=== PATIENT | male | born 1965 | race Caucasian/White ===

== ENCOUNTER 2018-04-05 07:30 | Outpatient (RCR) | payer OTHER, SELFPAY | END 2018-04-05 11:00 | disposition home or self-care (01) | LOC: PT 07:30 | PROVIDERS: Visit Provider Orthopaedic Surgery Adult Reconstructive Orthopaedic Surgery | DX: M25.572 Pain in left ankle and joints of left foot (principal) | CPT/HCPCS: 97110; 97112; 97116; 97163; 97164 ==

== ENCOUNTER 2019-08-25 10:00 | Outpatient (RCR) | payer OTHER, SELFPAY | END 2019-08-25 16:07 | disposition home or self-care (01) | LOC: PT.CARL 10:00 | PROVIDERS: PCP Internal Medicine Adolescent Medicine; Visit Provider Orthopaedic Surgery | DX: R26.9 Unspecified abnormalities of gait and mobility (principal); M62.469 Contracture of muscle, unspecified lower leg | CPT/HCPCS: 97110; 97112; 97116; 97163 ==

== ENCOUNTER → 2021-01-15 10:50 | Outpatient (CLI) | payer OTHER, SELFPAY | PROVIDERS: Visit Provider Urology | DX: Z01.812 Encounter for preprocedural laboratory examination (principal); Z11.52 Encounter for screening for COVID-19; N13.8 Other obstructive and reflux uropathy; N40.1 Benign prostatic hyperplasia with lower urinary tract symptoms | CPT/HCPCS: C9803; U0003; U0005 ==

== ENCOUNTER 2021-01-18 09:47 | Day surgery (SDC) | payer OTHER, SELFPAY ==
[2021-01-18 10:15] VITALS: BP 134/83; PULSE 68; RESP 18; TEMP 36.8; O2SAT 100; BMI 30.2
[2021-01-18 11:05] VITALS: BP 148/84; PULSE 81; RESP 20; TEMP 36.6; O2SAT 99
--- NOTE | 2021-01-18 12:49 | HMH.OPNOTE ---
Date of procedure: 01/18/21 Pre-op Diagnosis:: Urinary slowing Post-op Diagnosis:: BPH with obstruction Procedure performed:: Cystoscopy Surgeon:: Jonas Alberto MD Anesthesia: local Estimated blood loss (mL): 0 Clinical Note:: Patient is a 55-year-old white male with complaints of weak stream and straining to urinate. He presents for cystoscopic evaluation. He states medications for his symptoms have been tried but have been unsuccessful. His mother states he is rather noncompliant with medications. Operative findings:: Prostate showed trilobar hyperplasia the bladder showed some mild trabeculation along the floor. No median lobe was noted. Operative note:: Patient taken to the cystoscopy suite after informed consent was obtained. On the stretcher he was prepped and draped in the standard surgical fashion and 2% lidocaine placed into the urethra and the urethra clamped for 5 minutes. After 5 minutes the flexible cystoscope introduced into the urethral meatus and passed to the prostatic urethra which showed some moderate trilobar hyperplasia. The bladder was entered and examined in a systematic fashion. There was mild to moderate trabeculation along the floor of the bladder. No median lobe was noted. No cellules or diverticula were noted. The ureteral orifices in their normal anatomic position with clear efflux of urine. Scope then removed. The patient tolerated the procedure well. Bladder scan was performed after the patient was able to void in the recovery room and it was 24 cc. I am going to place him on a course of alfuzosin 10 mg. I will see him back in 2 weeks for reevaluation. If no improvement in his stream we will discuss UroLift procedure. Condition: stable Disposition: same day Specimens:: None Complications:: None
== END 2021-01-18 11:10 | disposition home or self-care (01) ==
LOC: OUTP 09:50
PROVIDERS: PCP Nurse Practitioner Family; Visit Provider Urology
PROC: (CPT 52000; principal; 2021-01-18 10:15)
DX: N40.1 Benign prostatic hyperplasia with lower urinary tract symptoms (principal); R39.198 Other difficulties with micturition
CPT/HCPCS: 52000

== ENCOUNTER → 2021-02-23 10:44 | Outpatient (CLI) | payer OTHER, SELFPAY ==
[2021-02-23 10:46] LABS: MANUAL DIFFERENTIAL MANUAL DIFFERENTIAL (MANUAL DIFF)
[2021-02-23 13:04] LABS: Anion Gap 15.8 mEq/L (5-15); Blood Urea Nitrogen 10 mg/dl (9-20); Calcium 9.5 mg/dl (8.4-10.2); Carbon Dioxide 23 mmol/L (22.0-30.0); Chloride 107 mmol/L (98-107); Estimated Glomerular Filt Rate 140 ml/min (>60); GFR (African American) 170 ML/MIN (>60); Glucose 86 mg/dl (74-100); Potassium 3.8 mmoL/L (3.5-5.1); Sodium 142 mmol/L (136-145)
[2021-02-23 14:14] LABS: Basophils # 0.1 K/mm3 (0-0.2); Basophils % 0.6 % (0.1-2.0); Eosinophils # 0.1 K/mm3 (0.0-0.4); Eosinophils % 1.4 % (0.1-12.0); Hematocrit 46.7 % (42.0-52.0); Hemoglobin 15.5 g/dL (14.1-18.0); Lymphocytes # 2.2 K/mm3 (0.7-4.5); Lymphocytes % 24.7 % (10-50); Mean Corpuscular HGB Conc 33.3 g/dL (31.8-35.4); Mean Corpuscular Hemoglobin 32.4 pg (27.0-31.2); Mean Corpuscular Volume 97.3 fl (80-94); Mean Platelet Volume 9.8 fl (7.4-10.4); Monocytes # 0.7 K/mm3 (0.1-1.0); Monocytes % 8.2 % (1.7-9.3); Neutrophils # 5.7 K/mm3 (1.8-7.8); Neutrophils % 65.2 % (37.0-80.0); Platelet Count 312 K/mm3 (142-424); White Blood Count 8.7 K/mm3 (4.8-10.8)
[2021-02-23 17:19] LABS: Eosinophils % 3 % (0-3); Lymphocytes % 19 % (10-50); Monocytes % 9 % (2-9); Neutrophils % 69 % (42-76); Platelet Estimate Normal; RBC Morphology Normal; Total Cells Counted 100
== END ==
PROVIDERS: Visit Provider Urology
DX: Z01.812 Encounter for preprocedural laboratory examination (principal); Z11.52 Encounter for screening for COVID-19; N13.8 Other obstructive and reflux uropathy; N40.1 Benign prostatic hyperplasia with lower urinary tract symptoms
CPT/HCPCS: 36415; 80048; 85007; 85014; 85018; 85048; 85049; C9803; U0003; U0005

== ENCOUNTER 2021-02-25 08:14 | Day surgery (SDC) | payer OTHER, SELFPAY ==
[2021-02-19 10:42] VITALS: BMI 28.8
[2021-02-25 08:31] VITALS: BP 112/84; PULSE 86; RESP 18; TEMP 37; O2SAT 97
--- NOTE | 2021-02-25 08:58 | SUR.PREOP ---
PT HAS SEVERE MUSCULAR WEAKNESS. PT IS UNABLE TO WALK WITHOUT ASSISTANCE, REQUIRED ASSIST X2 TO GET IN THE BED, AND WAS UNABLE TO HOLD UPPER EXTREMEMTIES IN CERTAIN POSITIONS WHEN ASKED TO DURING OBTAIN AN IV. PT AND MOTHER DENIES ANY MUSCLE OR BONE DISEASES.
--- NOTE | 2021-02-25 09:43 | P.PN_ITS ---
[facility] Anesthesia Checklist - Patient Identification Patient Identification: Arm Band - Structural Data Admitted From: Home Planned Operative Procedure/s: Urolift Consent for Planned Operative Procedure(s) Verified: Yes Verified Documents: Surgical Consent, History and Physical - NPO Status Verified Time NPO: 00:00 - Additional verifications Anesthesia Reactions: No Hx Blood Transfusions: No Blood Transfusion Reaction: No - Airway Assessment C-Spine Mobility Assessed: Yes (mp2) TMJ Mobility Assessed: Yes Dentition: Good Dentition - Neurological Assessment Level of Consciousness: Awake, Alert - Anesthesia Plan Anesthesia Risk discussed: Yes Anesthesia Plan: Verified ASA Class: II Anesthesia Type: MAC [facility] History Medical History: Reports:: Cancer, Renal Disease, Urinary Tract Infection Denies:: Diabetes Mellitus Type 1, Diabetes Mellitus Type 2, Internal Pacemaker, MRSA, Seizures *Have you ever received a pneumonia vaccine?: No *Have you received a flu vaccine this season?: No Other Medical History: Reports: Arthritis. Denies: Blood Transfusion Reaction Anesthesia experience/problems:: nac Other Surgeries: Yes: Appendectomy, Cancer Surgery, Colonoscopy. No: Pacemaker Amputation: No Fractures: Yes - *Social History Last grade of school completed: 7th or 8th Smoking Status: Never smoker Alcohol Intake: current Alcohol Intake Frequency:: a few times a month Substance Use Type: denies use Last Used Substance: unknown *Occupational Status:: disabled Housing: house Household Members: family *Travel in the last 8 weeks: None Family Hx:: Cancer, Diabetes, Hypertension, Kidney Disease
[2021-02-25 11:02] VITALS: TEMP 43
[2021-02-25 11:15] VITALS: BP 99/65; PULSE 79; RESP 16; TEMP 36.3; O2SAT 94
[2021-02-25 11:30] VITALS: BP 111/54; PULSE 84; RESP 16; O2SAT 97
[2021-02-25 11:45] VITALS: BP 128/61; PULSE 76; RESP 16; TEMP 36.7; O2SAT 98
--- NOTE | 2021-02-25 15:38 | HMH.OPNOTE ---
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 Operative findings:: Trilobar prostatic hyperplasia is present. No evidence of a median lobe is present. Urethral length shorter than average. Operative note:: Patient taken to the operating room after informed consent was obtained. He was placed on the operating table in the supine position and general anesthesia administered. Preoperative antibiotics administered sequential compression devices placed. He was then placed into the dorsal lithotomy position and prepped and draped in the standard surgical fashion. A 20 Belgian cystoscope was passed into the urethra and into the bladder without difficulty. The bladder was examined in systematic fashion and is no evidence of gross abnormalities, stones, diverticula or trabeculation. Ureteral orifices in their normal anatomic position. The scope was retracted back to the prostatic urethra and no evidence of a median lobe was present. There was trilobar hyperplasia present and the verumontanum was easily identified. The UroLift device was then placed onto the 0 degree lens and placed back into the bladder. The implant device was brought back to the verumontanum and the device then pressed against the rightward aspect of the prostate and the the 9:30 position. Safety was disengaged and needle was released through the prostate and the implant device then moved proximally towards the bladder neck until the white line was identified and the suture was then cut. Good result was noted. Another implant device was loaded and we turned our attention to the patient's left side and the device was brought back to the verumontanum and then the prostate compressed at the 9:30 position proximal to the [facility]. Safety was released and the wire passed through the prostate and again attention was developed moving the scope towards the bladder neck until the white line was identified and the suture cut. Good result was identified again. Third implant device was used in the patient's right side was implanted by bringing the device back to the very again and moving it on a centimeter proximal turning the device at the 10 o'clock position compressing the prostate firing the needle through the prostate at about mid prostate. Suture was tensioned and cut. The identical procedure was performed on the patient's left. The UroLift implant device was then removed and our scope passed back into the bladder and prostate visualized and a good defect was noted the prostatic urethra was wide open. Scope then removed and a 20 Belgian Schmidt catheter placed without difficulty. Patient tolerated procedure well no complications. Condition: stable Disposition: same day Specimens:: None Complications:: None
== END 2021-02-25 11:46 | disposition home or self-care (01) ==
LOC: OR 08:15
PROVIDERS: PCP Nurse Practitioner Family; Visit Provider Urology
PROC: (CPT 52441; principal; 2021-02-25 10:00)
DX: N40.1 Benign prostatic hyperplasia with lower urinary tract symptoms (principal); R33.8 Other retention of urine; R39.16 Straining to void; Z85.9 Personal history of malignant neoplasm, unspecified; N28.9 Disorder of kidney and ureter, unspecified; Z87.440 Personal history of urinary (tract) infections; M19.90 Unspecified osteoarthritis, unspecified site; Z90.49 Acquired absence of other specified parts of digestive tract; Z80.9 Family history of malignant neoplasm, unspecified; Z83.3 Family history of diabetes mellitus; Z82.49 Family history of ischemic heart disease and other diseases of the circulatory system; Z84.1 Family history of disorders of kidney and ureter; Z79.899 Other long term (current) drug therapy
CPT/HCPCS: 52441; 52442 ×3; 96374; L8699

== ENCOUNTER → 2021-04-12 08:49 | Outpatient (CLI) | payer OTHER, SELFPAY ==
--- NOTE | 2021-04-12 08:49 | CT_ITS ---
PROCEDURE INFORMATION: Exam: CT Abdomen And Pelvis With Contrast Exam date and time: 04/12/2021 8:49 AM Age: 55 years old Clinical indication: Abdominal pain TECHNIQUE: Imaging protocol: Computed tomography of the abdomen and pelvis with contrast. Radiation optimization: All CT scans at this facility use at least one of these dose optimization techniques: automated exposure control; mA and/or kV adjustment per patient size (includes targeted exams where dose is matched to clinical indication); or iterative reconstruction. Contrast material: ISOVUE; Contrast volume: 75 ml; Contrast route: IV; COMPARISON: No relevant prior studies available. FINDINGS: Tubes, catheters and devices: Catheter tubing in the intraperitoneal space of the left lower quadrant, nonspecific. This could be related to abandoned catheter tubing. Correlation with history is recommended. Partially visualized left pleural catheter. Lungs: Compressive atelectasis in the left lung base. Lung bases are otherwise clear. Pleural spaces: Partially visualized left pleural effusion. Diaphragm: A small hiatal hernia is present. Liver: Normal. No mass. Gallbladder and bile ducts: Normal. No calcified stones. No ductal dilation. Pancreas: Normal. No ductal dilation. Spleen: Normal. No splenomegaly. Adrenal glands: Normal. No mass. Kidneys and ureters: There is a simple cyst in the right kidney measuring 1.8 cm. Bilateral extrarenal pelvises. Subcentimeter hypodense left renal lesion is too small to characterize, however favors a simple cyst. The kidneys are otherwise unremarkable. The ureters are normal. Stomach and bowel: Air-filled large bowel. No definitive evidence for bowel obstruction. No segmental bowel wall thickening. There is moderately excessive colonic stool content. Appendix: No evidence of appendicitis. Intraperitoneal space: No free fluid, fluid collections, or pneumoperitoneum. Retroperitoneal space: Multiple clips noted throughout the retroperitoneum, favoring prior lymph node resection. Vasculature: The vasculature demonstrates diffuse moderate atherosclerotic calcification. Lymph nodes: No concerning abdominopelvic adenopathy is appreciated. Urinary bladder: Unremarkable as visualized. Reproductive: The prostate demonstrates mild nonspecific enlargement. The seminal vesicles are normal. Bones/joints: No acute skeletal pathology. Mild multilevel degenerative changes of the spine, as manifested by multilevel anterior osteophytes and multilevel decrease in intervertebral disc space. Soft tissues: There is a fat-containing umbilical hernia. No acute body wall soft tissue findings are appreciated. Other findings: Prostatic radiation beads are noted. IMPRESSION: 1. Bloating with moderate constipation. No bowel obstruction. 2. No acute abdominopelvic pathology is otherwise appreciated. 3. Incidental findings as detailed above. COMMENTS: Consistent with the [employer]'s Incidental Findings Committee white paper (J Am Hiro Radiol 2018): Any incidental renal lesion less than 1 cm or classified as too small to characterize, or any incidental cystic renal lesion characterized as simple-appearing, is likely benign. No follow-up imaging is recommended for these lesions per consensus recommendations based on imaging criteria.
== END ==
PROVIDERS: PCP Nurse Practitioner Family; Visit Provider Surgery
DX: R10.9 Unspecified abdominal pain (principal)
CPT/HCPCS: 74177; Q9967

== ENCOUNTER → 2022-10-20 08:15 | Outpatient (CLI) | payer OTHER, SELFPAY ==
--- NOTE | 2022-10-20 08:19 | US_ITS ---
FINAL REPORT CLINICAL HISTORY: ABDOMINAL PAIN FINDINGS: Sonographic images of the abdomen were obtained. There is fatty infiltration of the liver. There is a probable small polyp in the gallbladder. The common bile duct is not measured on this examination but no evidence of ductal dilatation is seen. The pancreas is partially obscured by overlying bowel gas. The spleen size is normal. The right kidney measures 9.6 cm in length. The left kidney measures 9.2 cm in length. There is normal renal echogenicity, with an area isoechoic to the renal parenchyma that most likely represents a prominent column of Malik. There is no evidence of hydronephrosis. The aorta is poorly visualized but appears grossly unremarkable. IMPRESSION: Evaluation of the pancreas, common bile duct, and aorta is limited. Probable small polyp in the gallbladder. No definite gallstones were visualized. Fatty infiltration of the liver. Reviewed, Interpreted and Dictated by Rober Chin III, MD Transcribed by Sania Powell Authenticated and . [facility]
== END ==
PROVIDERS: PCP Nurse Practitioner Family; Visit Provider Nurse Practitioner Family
DX: R10.9 Unspecified abdominal pain (principal)
CPT/HCPCS: 76700

== ENCOUNTER 2023-02-01 19:34 | Emergency (ER) | payer OTHER, SELFPAY ==
[2023-02-01] VITALS (7 sets, daily range): BP systolic 118–178; BP diastolic 76–108; PULSE 80–101; RESP 19; TEMP 36.7; O2SAT 96–99; BMI 30.1
--- NOTE | 2023-02-01 19:54 | CT_ITS ---
PROCEDURE INFORMATION: Exam: CT Abdomen And Pelvis With Contrast Exam date and time: 02/01/2023 8:59 PM Age: 57 years old Clinical indication: Bloating and other: H/o cancer; Prior surgery; Surgery date: 6+ months; Surgery type: Testicle removed; Additional info: Distended abdomen, previous colon cancer S/P surg TECHNIQUE: Imaging protocol: Computed tomography of the abdomen and pelvis with contrast. Radiation optimization: All CT scans at this facility use at least one of these dose optimization techniques: automated exposure control; mA and/or kV adjustment per patient size (includes targeted exams where dose is matched to clinical indication); or iterative reconstruction. Contrast material: ISOVUE 370; Contrast volume: 70 ml; Contrast route: IV; REPORTING DATA: Count of CT and Cardiac NM exams in prior 12 months: This patient has received 0 known CTs and 0 known cardiac nuclear medicine studies in the 12 months prior to the current study. COMPARISON: CT ABDOMEN PELVIS W CON 04/12/2021 9:09 AM FINDINGS: Tubes, catheters and devices: There are prostatic brachytherapy seeds. Abandoned shunt catheter in the left lower quadrant. Liver: Normal. No mass. Gallbladder and bile ducts: Normal. No calcified stones. No ductal dilation. Pancreas: The pancreas is of normal size and morphology, without evidence of masses, cysts, or calcifications. The pancreatic duct is not dilated. Spleen: Surgical clip in the region of the splenic hilum. Adrenal glands: The adrenal glands appear normal. Kidneys and ureters: Simple appearing right renal cyst. Stomach and bowel: The stomach, small bowel, and colon are well-distended and show no evidence of wall thickening, masses, or obstruction. Appendix: No evidence of appendicitis. Intraperitoneal space: Unremarkable. No free air. No significant fluid collection. Vasculature: There is atherosclerotic disease of the visualized aorta and its major branch vessels. Lymph nodes: Status post retroperitoneal lymphadenectomy. Mildly prominent nodes in the central mesentery, nonspecific. Urinary bladder: There is moderate distention of the urinary bladder. Reproductive: No significant pathology. Bones/joints: There is exaggeration of the spinal curvature. There is diffuse degenerative disease of the visualized osseous structures. Soft tissues: Presumed injection granuloma in the left buttock soft tissues. There is a small fat containing umbilical hernia. Other findings: Please see the dedicated interpretation of the thorax for findings in that region. IMPRESSION: 1. No definite signs of inflammatory conditions, masses, adenopathy, or collections were observed in the abdomen or pelvis at the time of imaging. Additionally, the urinary tract and gastrointestinal system did not show any evidence of obstruction on the images acquired. 2. Please see the dedicated interpretation of the thorax for findings in that region. 3. Otherwise, incidental findings as above. COMMENTS: Consistent with the [employer]'s Incidental Findings Committee white paper (J Am Hiro Radiol 2018): Any incidental renal lesion less than 1 cm or classified as too small to characterize, or any incidental cystic renal lesion characterized as simple-appearing, is likely benign. No follow-up imaging is recommended for these lesions per consensus recommendations based on imaging criteria.
--- NOTE | 2023-02-01 19:54 | CT_ITS ---
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 Exam focused on the arteries. 3D rendering (Not supervised by radiologist): MIP and/or 3D reconstructed images were created by the technologist. Radiation optimization: All CT scans at this facility use at least one of these dose optimization techniques: automated exposure control; mA and/or kV adjustment per patient size (includes targeted exams where dose is matched to clinical indication); or iterative reconstruction. Contrast material: ISOVUE 370; Contrast volume: 70 ml; Contrast route: INTRAVENOUS (IV); REPORTING DATA: Count of CT and Cardiac NM exams in prior 12 months: This patient has received 0 known CTs and 0 known cardiac nuclear medicine studies in the 12 months prior to the current study. COMPARISON: CT ABDOMEN PELVIS W CON 04/12/2021 9:09 AM FINDINGS: Tubes, catheters and devices: Small to moderate left pleural effusion with a drainage catheter in place, likely reflecting a ventriculopleural catheter. Pulmonary arteries: There is fair opacification of the pulmonary arterial tree. No central pulmonary arterial filling defect is seen. Aorta: Unremarkable. No aortic aneurysm. No aortic dissection. Thyroid: There is heterogeneity of the thyroid gland for which nonemergent thyroid ultrasound should be considered. Lungs: Scattered areas of bronchial wall thickening which are likely chronic inflammatory. A few areas of subpleural reticulation are noted, nonspecific. There is scattered ground-glass opacity which could reflect air trapping. Pleural spaces: Unremarkable. No pneumothorax. No pleural effusion. Heart: Unremarkable. No cardiomegaly. No pericardial effusion. Lymph nodes: There are mildly prominent mediastinal lymph nodes which are nonenlarged. Bones/joints: Unremarkable. No acute fracture. Soft tissues: There is bilateral gynecomastia. IMPRESSION: 1. There is fair opacification of the pulmonary arterial tree. No central pulmonary arterial filling defect is seen. 2. Small left pleural effusion with a shunt catheter extending to the left pleural space, similar to prior examinations. 3. Scattered ground-glass opacity which could reflect viral pneumonitis. 4. There is heterogeneity of the thyroid gland for which nonemergent thyroid ultrasound should be considered.
--- NOTE | 2023-02-01 19:55 | HMH.EDGENADL ---
Discharge Plan Disposition Patient Disposition: Home, Self-Care Condition: Good Prescriptions Prescriptions: No Action finasteride 5 mg tablet 5 mg PO bethanechol chloride 25 mg tablet 25 mg PO tamsulosin 0.4 mg capsule 0.4 mg PO paroxetine HCl 10 mg tablet 10 mg PO furosemide 20 mg tablet 20 mg PO Patient Comments: Take 1 tablet every day by oral route as needed. peg 3350-electrolytes [GaviLyte-G] 236-22.74-6.74 -5.86 gram recon soln 240 ml PO Q10M Qty: 4000 0RF Rx Instructions: until fecal effluent is clear--- follow mailed instructions Referrals Follow up/Referrals: Padmaja Stapleton [Primary Care Provider] - See instructions Activity Restrictions/Add. Instructions Additional Instructions/Restrictions: At this time it was felt you are safe to be discharged home. If new or worsening symptoms please do not hesitate to return the emergency department. If symptoms persist please follow-up with your family doctor as you are able. Clinical Impressions Clinical Impression: SOB (shortness of breath), Viral pneumonitis Instructions Patient Instructions: DI for Shortness of Breath Discharge ED Provider: [facility] <Noah Prado MD - Last Filed: 02/01/23 22:39> General Chief complaint: Shortness of Breath/Dyspnea Stated complaint: SOA Time Seen by Provider: 02/01/23 19:39 Mode of Arrival: Wheelchair Source of Information: Patient Limitations: No Limitations Description of Symptoms (Recalled from ER Triage Doc. by RN): 57 M presents from home with increased shortness of air over the last couple of hours. Patient states his abdomen is hard as a rock, and this might be causing this. Patient denies chest pain. History of Present Illness HPI narrative: Patient is a 57-year-old male with past medical history of prostate cancer status post resection multiple years ago, previous multi pack-year smoker, noncurrent smoker who presents emergency department for evaluation of shortness of breath. Patient states that it has progressed over the last 48 hours. No cough, no chest pain. He has abdominal distention which is currently pending endoscopy. No other acute complaints at this time. Related Data Home Medications Medication Instructions Recorded Confirmed furosemide 20 mg tablet 20 mg PO 10/22/22 11/27/22 paroxetine HCl 10 mg tablet 10 mg PO 10/22/22 11/27/22 tamsulosin 0.4 mg capsule 0.4 mg PO 10/22/22 11/27/22 bethanechol chloride 25 mg tablet 25 mg PO 11/05/22 11/27/22 finasteride 5 mg tablet 5 mg PO 11/05/22 11/27/22 Previous Rx's Medication Instructions Recorded peg 3350-electrolytes 236 240 ml PO Q10M #4,000 mL 01/29/23 gram-22.74 gram-6.74 gram-5.86 gram solution (GaviLyte-G) Allergies Allergy/AdvReac Type Severity Reaction Status Date / Time No Known Allergies Allergy Verified 11/27/22 12:01 [facility] <Noah Prado MD - Last Filed: 02/01/23 22:39> [facility] Disclaimer: The information contained in this section may have been updated after the patient was seen, as this information can be updated by other users. Surgical History History of colonoscopy Social History Smoking Status: Never smoker second hand exposure: No alcohol intake: current substance use type: denies use current occupational status: disabled Travel in the last 8 weeks: None household members: family housing: house current occupational exposures/hazards: No caffeine: Yes <Noah Prado MD - Last Filed: 02/01/23 22:39> ROS Obtained: Yes Systems reviewed as appropriate & no additional complaints except as documented Physical Exam <Noah Prado MD - Last Filed: 02/01/23 22:39> General General appearance: alert and in no apparent distress Head Head exam: atraumatic and normocephalic Eye Eye exam: Pre
--- NOTE | 2023-02-01 20:13 | PC.NURSE ---
2 sets BC drawn as well as lactic, blue sepsis band applied
--- NOTE | 2023-02-01 20:20 | ECG_ITS ---
APPROVED REPORT Exam: Resting ECG HR:87 bpm ECG Measurements Heart Rate 87 AXES [place] 133 P 48 QRSd 82 QRS 17 QT 348 T 12 QTc 392 Conclusion SINUS RHYTHM LOW QRS VOLTAGE IN PRECORDIAL LEADS [QRS DEFLECTION < 1.0 mV IN CHEST LEADS] NONSPECIFIC T-WAVE ABNORMALITY BORDERLINE ECG UNCONFIRMED REPORT Electronically signed by : Terry Astorga MD 02/02/2023 17:22:29
[2023-02-01 20:26] LABS: VBG Base Excess -3.8 mmol/L (-2.4-2.3); VBG HCO3 22.3 mmol/L (23-30); VBG Oxygen Saturation 70.6 % (50-70); VBG PCO2 43.9 mmol/L (35-51); VBG PH 7.32 mmol/L (7.31-7.41); VBG PO2 38.5 mmol/L (28-40); VBG Total CO2 23.6 mmol/L (23-27)
[2023-02-01 20:26] LABS: Basophils % 0.3 % (0.1-2.0); Eosinophils # 0.1 K/mm3 (0.0-0.4); Eosinophils % 1.3 % (0.1-12.0); Hematocrit 43.2 % (42.0-52.0); Hemoglobin 15.3 g/dL (14.1-18.0); Lymphocytes # 2.2 K/mm3 (0.7-4.5); Lymphocytes % 24.4 % (10-50); Mean Corpuscular HGB Conc 35.4 g/dL (31.8-35.4); Mean Corpuscular Hemoglobin 33.3 pg (27.0-31.2); Mean Corpuscular Volume 93.9 fl (80-94); Mean Platelet Volume 8.5 fl (7.4-10.4); Monocytes # 0.7 K/mm3 (0.1-1.0); Monocytes % 7.4 % (1.7-9.3); Neutrophils % 66.6 % (37.0-80.0); Platelet Count 254 K/mm3 (142-424); Red Cell Distribution Width 13.5 % (11.5-17.5); White Blood Count 8.9 K/mm3 (4.8-10.8)
[2023-02-01 20:34] LABS: Alanine Aminotransferase 40 U/L (12-78); Albumin Level 4.6 g/dl (3.5-5.0); Albumin/Globulin Ratio 1.4 (1.1-1.8); Alkaline Phosphatase 119 U/L (38-126); Anion Gap 12.8 mEq/L (5-15); Aspartate Amino Transferase 35 U/L (17-59); Bilirubin,Total 0.3 mg/dl (0.2-1.3); Blood Urea Nitrogen 12 mg/dl (9-20); Calcium 8.9 mg/dl (8.4-10.2); Carbon Dioxide 26 mmol/L (22.0-30.0); Chloride 106 mmol/L (98-107); Creatinine Clearance Estimated 112 mL/min (50-200); Estimated Glomerular Filt Rate 100 ml/min (>60); GFR (African American) 121 ML/MIN (>60); Globulin 3.2 g/dL (1.3-3.2); Glucose 123 mg/dl (74-100); Lactic Acid 1.7 mmol/L (0.7-2.1); Potassium 3.8 mmoL/L (3.5-5.1); Sodium 141 mmol/L (136-145); Total Protein,Serum 7.8 g/dl (6.3-8.2)
[2023-02-01 20:43] LABS: NT Pro Brain Natriuretic Pep. 20.9 pg/mL (0-125)
[2023-02-01 20:46] LABS: Troponin I < 0.01 ng/ml (0.00-0.034)
--- NOTE | 2023-02-01 21:04 | PC.NURSE ---
patient back in CT at this time.
--- NOTE | 2023-02-01 21:15 | PC.NURSE ---
patient assisted x2 to bathroom. patient unable to help with weight bearing at times. refused urinal and bed evans at this time. refused to use the restroom because he would be assisted due to being unstable getting from bed to wheelchair. but did not want anyone in the bathroom at the time.
--- NOTE | 2023-02-01 22:08 | PC.NURSE ---
pt found down in floor, slid from bed to floor and was witnessed by family, pt complains of no new aches or injuries, no loc or head injury ER MD made aware, ER director insurance aware. pt now a 1:1 observation while still in ER. PT was assisted back to bed with 3 ER staff and pt family was present for all events. [facility] warehouse processor made aware. family had put bed rail down on the side of bed that patient was found down on. Pt was trying to get from bed to wheelchair and slid into floor despite being told several times by ER staff to use call sorto and wait for ER staff to arrive to help and assist.
--- NOTE | 2023-02-01 22:12 | PC.NURSE ---
sitting one to one with patient at this time.
--- NOTE | 2023-02-01 22:41 | PC.NURSE ---
Pt wants to use bathroom, I advised him he was a falls risk and due to him falling earlier we would assist him with a urinal. He stated I will not have you watching me use the bathroom. I explained he would have privacy we were only going to hold him to ensure he did not fall again. He said Never mind just forget it
[2023-02-01 22:43] LABS: Coronavirus 19, PCR Not Detected (NotDetected); Influenza A, PCR Not Detected (NotDetected); Influenza B, PCR Not Detected (NotDetected)
--- NOTE | 2023-02-01 22:50 | PC.NURSE ---
in room talking with patient at this time.
[2023-02-01 23:47] LABS: Troponin I < 0.01 ng/ml (0.00-0.034)
[2023-02-02 00:06] VITALS: BP 142/84; PULSE 88; RESP 20; TEMP 36.6; O2SAT 98
== END 2023-02-01 23:50 | disposition home or self-care (01) ==
PROVIDERS: Emergency Medicine; Emergency Provider Emergency Medicine; PCP Nurse Practitioner Family
DX: J12.9 Viral pneumonia, unspecified (principal); R06.02 Shortness of breath; Z87.891 Personal history of nicotine dependence
CPT/HCPCS: 36415; 71275; 74177; 80053; 82803; 83605; 83880; 84484; 85025; 87636; 93005; 99285; Q9967

== ENCOUNTER 2023-02-11 11:48 | Day surgery (SDC) | payer OTHER, SELFPAY ==
[2023-02-11 12:57] VITALS: BP 142/89; PULSE 78; RESP 16; TEMP 36.1; O2SAT 95; BMI 32.1
--- NOTE | 2023-02-11 13:33 | EXP.ANES.CKL ---
[facility] Disclaimer: The information contained in this section may have been updated after the patient was seen, as this information can be updated by other users. Medical History Anxiety and depression Edema Enlarged prostate History of back pain Testicle cancer Surgical History History of brain shunt History of colonoscopy Hx of appendectomy Family History Other Cancer Heart attack Kidney disease Social History Smoking Status: Never smoker second hand exposure: No alcohol intake: never substance use type: denies use current occupational status: disabled Travel in the last 8 weeks: None household members: family housing: house current occupational exposures/hazards: No caffeine: Yes [facility] Anesthesia Checklist Patient Identification Patient Identification: Arm Band and Verbal (Name & ) Structural Data Admitted From: Home Planned Operative Procedure/s: EGD/Colonoscopy Consent for Planned Operative Procedure(s) Verified: Yes NPO Status Verified Time NPO: 00:00 Additional verifications Anesthesia Reactions: No Hx Blood Transfusions: No Blood Transfusion Reaction: No Airway Assessment Mallampati Score:: Class II C-Spine Mobility Assessed: Yes TMJ Mobility Assessed: Yes Dentition: Good Dentition Neurological Assessment Level of Consciousness: Awake Hx Seizures: No Numbness or tingling in extremities: No Anesthesia Plan Anesthesia Risk discussed: Yes Anesthesia Plan: Verified ASA Class: II Anesthesia Type: MAC
--- NOTE | 2023-02-11 14:27 | HMH.SCOPE ---
Procedure: Date: 02/11/23 Patient Date of :: 1965 Procedure Performed:: Colonoscopy Indications:: History of polyps Performing Provider:: Mitesh Mitchell MD Referring Provider:: Padmaja Stapleton Sedation:: See RN records Procedure:: After placing the patient in the left lateral decubitus position, the colonoscopy was gently inserted into the rectum and under direct visualization advanced to the cecum which was identified by transillumination in the right lower quadrant, identification of the ileocecal valve, appendiceal orifice, and cecal strap. Color, texture, mucosa, and anatomy of the colon were carefully examined with the scope. Preparation was excellent. Findings:: Anal canal: normal Rectum: Hemorrhoids Sigmoid colon: Two sessile polyps measuring 4-6 mm in size. Removed with cold snare polypectomy Descending colon: Three sessile polyps less than 5 mm in size. Removed with cold snare polypectomy Splenic flexure: Sessile polyp les than 5 mm in size. Removed with cold snare polypectomy. Transverse colon: Sessile polyp 5 mm in size. Removed with cold snare polypectomy Hepatic flexure: normal Ascending colon: Two sessile polyps 3 and 5 mm in size. Removed with cold snare polypectomy Cecum: normal Terminal ileum: not visualized Impression: Multiple colon polyps Recommendations:: Await pathology results Repeat colonoscopy in 2 years Complications:: none Estimated blood obtained (mL): 1 Colonoscopy Component Colonoscopy Component Was a colonoscopy performed during today's procedure?: Yes Recommended follow up colonoscopy of at least 10 years?: Yes
[2023-02-11 14:30] VITALS: BP 101/54; PULSE 83; RESP 16; TEMP 36.6; O2SAT 94
--- NOTE | 2023-02-11 14:34 | HMH.SCOPE ---
Procedure: Date: 02/11/23 Patient Date of :: 1965 Procedure Performed:: EGD Indications:: Abdominal pain and bloating Performing Provider:: Mitesh Mitchell MD Referring Provider:: Christina Garcia APRN Sedation:: See RN records Procedure:: The gastroscope was gently passed through the incisoral orifice into the oral cavity and under direct visualization the esophagus was intubated. The endoscope was passed down the esophagus, through the stomach, and into the duodenum. Color, texture, mucosa, and anatomy of the esophagus, stomach, and duodenum were carefully examined with the scope. Findings:: Oropharynx: normal Esophagus: Distal ulcerative esophagitis. LA Class C. Biopsies obtained distal and mid esophagus. EG Junction: intact at 33 cm Cardia: hiatal hernia 2 cm in size Fundus: normal Body: Minimal gastritis. Biopsy obtained Antrum: Minimal gastritis. Biopsy obtained Duodenal bulb: normal Duodenum (second and third portion): normal. Biopsies obtained Impression: LA Class C esophagitis Hiatal hernia Gastritis Recommendations:: Await pathology results Antireflux measures Pantoprazole 40 mg once daily Repeat EGD in 3 months Complications:: None Estimated blood obtained (mL): 0 Colonoscopy Component Colonoscopy Component Was a colonoscopy performed during today's procedure?: No
[2023-02-11 14:40] VITALS: BP 101/55; PULSE 81; RESP 16; O2SAT 96
[2023-02-11 14:50] VITALS: BP 111/69; PULSE 79; RESP 16; TEMP 36.6; O2SAT 99
[2023-02-11 15:00] VITALS: BP 117/74; PULSE 79; RESP 16; TEMP 36.6; O2SAT 99
== END 2023-02-11 15:00 | disposition home or self-care (01) ==
PROVIDERS: PCP Nurse Practitioner Family; Visit Provider Internal Medicine
PROC: 0DJ08ZZ Inspection of Upper Intestinal Tract, Via Natural or Artificial Opening Endoscopic (ICD-10-PCS; CPT 43235; principal; 2023-02-11 13:00)
DX: Z12.11 Encounter for screening for malignant neoplasm of colon (principal); Z86.010 Personal history of colon polyps; K29.50 Unspecified chronic gastritis without bleeding; D12.3 Benign neoplasm of transverse colon; D12.5 Benign neoplasm of sigmoid colon; D12.2 Benign neoplasm of ascending colon; K22.10 Ulcer of esophagus without bleeding; K44.9 Diaphragmatic hernia without obstruction or gangrene; K64.8 Other hemorrhoids
CPT/HCPCS: 45385; 43239; J2704

== ENCOUNTER 2023-04-16 14:00 | Outpatient (RCR) | payer OTHER, SELFPAY | END 2023-05-04 13:53 | disposition home or self-care (01) | LOC: PT 14:00 | PROVIDERS: PCP Nurse Practitioner Family; Visit Provider Nurse Practitioner Family | DX: M62.81 Muscle weakness (generalized) (principal) | CPT/HCPCS: 97110; 97112; 97140; 97163; 97164; 97530 ==

== ENCOUNTER 2023-05-13 08:52 | Day surgery (SDC) | payer OTHER, SELFPAY ==
[2023-05-12 12:54] VITALS: BMI 32.1
[2023-05-13] MEDS: LACTATED RINGERS 1000ML 1,000 ML 100 ML IV (09:11)
[2023-05-13 09:12] VITALS: BP 158/71; PULSE 80; RESP 18; TEMP 36.7; O2SAT 99
--- NOTE | 2023-05-13 09:32 | EXP.ANES.CKL ---
[facility] Disclaimer: The information contained in this section may have been updated after the patient was seen, as this information can be updated by other users. Medical History Anxiety and depression Edema Enlarged prostate History of back pain Testicle cancer Surgical History History of brain shunt History of colonoscopy Hx of appendectomy Family History Other Cancer Heart attack Kidney disease Social History Smoking Status: Never smoker second hand exposure: No alcohol intake: never substance use type: denies use current occupational status: disabled Travel in the last 8 weeks: None household members: family housing: house current occupational exposures/hazards: No caffeine: Yes [facility] Anesthesia Checklist Patient Identification Patient Identification: Arm Band and Verbal (Name & ) Structural Data Admitted From: Home Planned Operative Procedure/s: EGD Consent for Planned Operative Procedure(s) Verified: Yes NPO Status Verified Time NPO: 00:00 Additional verifications Anesthesia Reactions: No Hx Blood Transfusions: No Blood Transfusion Reaction: No Airway Assessment Mallampati Score:: Class II C-Spine Mobility Assessed: Yes TMJ Mobility Assessed: Yes Dentition: Good Dentition Neurological Assessment Level of Consciousness: Awake Hx Seizures: No Numbness or tingling in extremities: No Anesthesia Plan Anesthesia Risk discussed: Yes Anesthesia Plan: Verified ASA Class: II Anesthesia Type: MAC
[2023-05-13 09:57] VITALS: O2SAT 99
--- NOTE | 2023-05-13 10:08 | P.PCN_ITS ---
Procedure: Date: 05/13/23 Patient Date of :: 1965 Procedure Performed:: EGD Indications:: the patient is a 57 year old with history of erosive esophagitis and dysphagia. The patient was treated with pantoprazole. Performing Provider:: Mitesh Mitchell MD Referring Provider:: Padmaja Stapleton Sedation:: See RN records Procedure:: The gastroscope was gently passed through the incisoral orifice into the oral ca vity and under direct visualization the esophagus was intubated. The endoscope was passed down the esophagus, through the stomach, and into the duodenum. Color, texture, mucosa, and anatomy of the esophagus, stomach, and duodenum were carefully examined with the scope. Findings:: Oropharynx: normal Esophagus: normal. Empiric dilatation performed with 56F bougie dilator EG Junction: intact at 40 cm Cardia: small hiatal hernia Fundus: normal Body: normal Antrum: normal Duodenal bulb: normal Duodenum (second and third portion): normal Recommendations:: Return for EGD with esophageal dilatation as needed Antireflux measures Can continue pantoprazole as prescribed Complications:: None Estimated blood obtained (mL): 0 Colonoscopy Component Colonoscopy Component Was a colonoscopy performed during today's procedure?: No
[2023-05-13 10:11] VITALS: BP 93/62; PULSE 82; RESP 16; TEMP 36.6; O2SAT 95
[2023-05-13 10:21] VITALS: BP 96/71; PULSE 71; RESP 18; O2SAT 95
[2023-05-13 10:31] VITALS: BP 112/72; PULSE 77; RESP 18; O2SAT 96
[2023-05-13 10:41] VITALS: BP 121/74; PULSE 76; RESP 18; O2SAT 95
== END 2023-05-13 10:47 | disposition home or self-care (01) ==
PROVIDERS: PCP Nurse Practitioner Family; Visit Provider Internal Medicine
PROC: 0DJ08ZZ Inspection of Upper Intestinal Tract, Via Natural or Artificial Opening Endoscopic (ICD-10-PCS; CPT 43235; principal; 2023-05-13 10:00)
DX: R13.10 Dysphagia, unspecified (principal); K22.10 Ulcer of esophagus without bleeding; K44.9 Diaphragmatic hernia without obstruction or gangrene
CPT/HCPCS: 43248

== ENCOUNTER 2023-06-11 18:45 | Emergency (ER) | payer OTHER, SELFPAY ==
--- NOTE | 2023-06-11 18:43 | ECG_ITS ---
APPROVED REPORT Exam: Resting ECG HR:86 bpm ECG Measurements Heart Rate 86 AXES RI 150 P 77 QRSd 85 QRS 21 QT 377 T -65 QTc 420 Conclusion SINUS RHYTHM with lots of artifact that limits interpreation of ST/TW segments o/w NORMAL ECG UNCONFIRMED REPORT Electronically signed by : Terry Astorga MD 06/12/2023 10:46:34
[2023-06-11 18:45] VITALS: BP 154/81; PULSE 75; RESP 20; TEMP 36.7; O2SAT 96; BMI 25.0
--- NOTE | 2023-06-11 18:51 | XR_ITS ---
PROCEDURE INFORMATION: Exam: XR Chest Exam date and time: 06/11/2023 6:54 PM Age: 57 years old Clinical indication: Shortness of breath; Chest wall pain; Additional info: Chest pain. SOA TECHNIQUE: Imaging protocol: Radiologic exam of the chest. Views: 1 view. Total images: 1 COMPARISON: CT ANGIO CHEST PE PROTOCOL 02/01/2023 8:59 PM FINDINGS: Tubes, catheters and devices: Radiopaque shunt catheter left chest wall. EKG leads are present. Lungs: Left basilar atelectasis. Lungs are otherwise clear and well expanded. No pulmonary vascular congestion, consolidation, or interstitial edema. Pleural spaces: Chronic small left pleural effusion. No pneumothorax. Heart/Mediastinum: Unremarkable. No cardiomegaly. No mediastinal widening or hilar enlargement. Bones/joints: Unremarkable. Intraperitoneal space: Surgical clips midline upper abdomen. IMPRESSION: 1. No radiographically acute cardiopulmonary process. 2. Chronic small left pleural effusion. 3. Chronic left basilar atelectasis.
[2023-06-11 19:00] VITALS: BP 140/85; PULSE 86; RESP 20; O2SAT 97
--- NOTE | 2023-06-11 19:25 | PC.NURSE ---
rounded on patient, family @ bedside
[2023-06-11 19:30] VITALS: BP 141/85; RESP 22
--- NOTE | 2023-06-11 19:34 | HMH.EDCP ---
Discharge Plan Disposition Patient Disposition: Home, Self-Care Condition: Good Chief Complaint: Chest Pain Prescriptions Prescriptions: No Action finasteride 5 mg tablet 5 mg PO DAILY bethanechol chloride 25 mg tablet 25 mg PO DAILY tamsulosin 0.4 mg capsule 0.4 mg PO DAILY paroxetine HCl 10 mg tablet 10 mg PO DAILY furosemide 20 mg tablet 20 mg PO DAILY Patient Comments: Take 1 tablet every day by oral route as needed. pantoprazole 40 mg tablet,delayed release (DR/EC) 40 mg PO DAILY Qty: 30 3RF Referrals Follow up/Referrals: Provider,Referral, MD [Primary Care Provider] - See instructions Activity Restrictions/Add. Instructions Additional Instructions/Restrictions: Follow-up with your primary care provider for continued management and return for any new or worsening symptoms. Clinical Impressions Clinical Impression: Shortness of breath Instructions Patient Instructions: DI for Atypical Chest Pain Discharge ED Provider: Angelika Concepcion General Chief Complaint: Chest Pain Stated Complaint: cp Time Seen by Provider: 06/11/23 18:51 Mode of Arrival: Wheelchair Source of Information: Parent(s) Limitations: No Limitations Description of Symptoms (Recalled from ER Triage Doc. by RN): patient to ED via wheelchair with complaints of chest pressure and SOA. Onset this morning. Describes pain at pressure, intermittent pain. no pain/SOA at present History of Present Illness HPI narrative: Patient is a 57-year-old male with past medical history shortness of breath, testicular cancer, GERD, prostatic hypertrophy presenting with chest pressure and shortness of breath. Patient states that intermittently over the past several weeks he has had worsening shortness of breath, particularly over the past 3 days. He does also note some chest pressure during this time. Seems to have gotten worse this morning prompting him and family members to present for further evaluation. He has had no evaluation yet by his PCP for these symptoms. He does also note that his abdomen feels slightly bloated which he thinks may be contributing to his symptoms. He reports a history of abdominal lymph node resection secondary to his testicular cancer several years ago and he is not on chemotherapy for this. Related Data Home Medications Medication Instructions Recorded Confirmed furosemide 20 mg tablet 20 mg PO DAILY 10/22/22 05/13/23 paroxetine HCl 10 mg tablet 10 mg PO DAILY 10/22/22 05/13/23 tamsulosin 0.4 mg capsule 0.4 mg PO DAILY 10/22/22 05/13/23 bethanechol chloride 25 mg tablet 25 mg PO DAILY 11/05/22 05/13/23 finasteride 5 mg tablet 5 mg PO DAILY 11/05/22 05/13/23 Previous Rx's Medication Instructions Recorded pantoprazole 40 mg tablet,delayed 40 mg PO DAILY #30 tabs 02/11/23 release Allergies Allergy/AdvReac Type Severity Reaction Status Date / Time No Known Allergies Allergy Verified 05/13/23 09:06 [facility] Disclaimer: The information contained in this section may have been updated after the patient was seen, as this information can be updated by other users. Medical History Anxiety and depression Edema Enlarged prostate History of back pain Testicle cancer Surgical History History of brain shunt History of colonoscopy Hx of appendectomy Family History Other Cancer Heart attack Kidney disease Social History Smoking Status: Never smoker second hand exposure: No alcohol intake: never substance use type: denies use current occupational status: disabled Travel in the last 8 weeks: None household members: family housing: house current occupational exposures/hazards: No caffeine: Yes ROS Obtained: Yes All systems reviewed & no additional complaints except as documented Physical Exam General General appearance: alert and in no apparent distress Head Head exam: atraumatic and normocephalic Neck Neck exam: Present normal inspection Chest Chest inspection: Present normal inspection and symmetric chest wall rise Respiratory Respiratory exam: Present normal lung sounds bilaterally; Absent respiratory distress Cardiovascular Cardiovascular exam: Present regular rate and normal rhythm Abdominal Exam Abdominal exam: Present soft and other (Large healed midline abdominal incision); Absent tenderness Extremities Exam Extremities exam: Present normal inspection Neurological Exam Neurological exam: Present alert and oriented X3 Skin Skin exam: Present warm and dry HEART Score HEART Score HEART Score assessment performed?: Yes History (anamnesis): Slightly suspicious ECG: Normal Age: 45-65 years Risk factors: 1-2 risk factors Troponin: </= normal limit HEART Score: 2 Critical Care Critical Care Time Critical Care Time: No Medical Decision Making Darryl Inquiry Pt receiving controlled substance: No Vital Signs Vital Signs: 06/11/23 18:45 06/11/23 19:00 06/11/23 19:30 Temperature 98.0 F Temperature Source Oral Pulse Rate 86 Pulse Rate [Right] 75 Respiratory Rate 20 20 22 Blood Pressure 140/85 141/85 H Blood Pressure [Right Arm] 154/81 H Blood Pressure Mean [Right Arm] 105 Blood Pressure Source [Right Arm] Automatic Cuff Blood Pressure Position [Right Arm] Supine 02 Sat by Pulse Oximetry 96 97 Oxygen Delivery Method Room Air 06/11/23 21:01 Temperature Temperature Source Pulse Rate 83 Pulse Rate [Right] Respiratory Rate 16 Blood Pressure 129/79 Blood Pressure [Right Arm] Blood Pressure Mean [Right Arm] Blood Pressure Source [Right Arm] Blood Pressure Position [Right Arm] 02 Sat by Pulse Oximetry 94 L Oxygen Delivery Method Lab Data Lab results reviewed: Yes I reviewed the patient's lab results. Labs: Lab Results 06/11/23 20:40: WBC 9.3, RBC 4.50 L, Hgb 14.3, Hct 44.0, MCV 97.8 H, MCH 31.8 H, MCHC 32.5, RDW 13.6, Plt Count 286, MPV 8.1, Neut % (Auto) 72.8, Lymph % (Auto) 18.5, [place] % (Auto) 7.0, Eos % (Auto) 1.3, Baso % (Auto) 0.2, Neut # (Auto) 6.7, Lymph # (Auto) 1.7, [place] # (Auto) 0.7, Eos # (Auto) 0.1, Baso # (Auto) 0.0, Sodium 138, Potassium 3.8, Chloride 108 H, Carbon Dioxide 24, Anion Gap 9.8, BUN 15, Creatinine 0.80, Estimated Creat Clear 109, Estimated GFR 100, Est GFR ( Amer) 121, Glucose 99, Calcium 9.0, Troponin I < 0.01 06/11/23 20:40 06/11/23 20:40 Response Orders (Tests/Meds): ED MEDICATIONS Generic Name Dose Route Start Last Admin Trade Name Freq PRN Reason Stop Dose Admin Sodium Chloride 10 ml 06/11/23 18:51 Sodium Chloride 0.9% 10ml Flush Syringe IV 07/11/23 18:50 NEEDED PRN Maintain IV Site Discontinued Medications Generic Name Dose Route Start Last Admin Trade Name Sarah PRN Reason Stop Dose Admin Aspirin 324 mg 06/11/23 18:51 06/11/23 20:02 Aspirin 81mg Chewable Tablet PO 06/11/23 18:52 324 mg ONCE ONE Administration ORDERS Category Date Time Status XR chest portable Stat Exams 06/11/23 18:51 Completed Basic Metabolic Panel Stat Lab 06/11/23 20:40 Completed Complete Blood Count Auto Diff Stat Lab 06/11/23 20:40 Completed Trop I [Troponin I] Stat Lab 06/11/23 20:40 Completed Troponin I Q3H Lab 06/11/23 23:30 Ordered Troponin I Q3H Lab 06/12/23 02:30 Ordered ECG Data Tracing #1: Attestation: I reviewed this ECG and interpreted as documented below: ECG Narrative: EKG showing normal sinus rhythm at a rate of 86 without acute ischemia or infarction MDM Narrative Medical Decision Narrative: Patient is a 57-year-old male with past medical history testicular cancer status post remission and lymph node resection, IBS, concussion, shortness of breath presenting with 2 weeks of shortness of breath worse over the past 3 days. He is in no acute distress, lung sounds clear bilaterally and hemodynamically stable. He is not requiring any supplemental oxygen. Reportedly has no known cardiac history and has not yet seen his primary care provider. Will obtain labs for further evaluation. EKG per my read showing no acute ischemia or infarction, CBC and CMP nonactionable, troponin negative and given duration of symptoms do feel this rules out acute cardiac event. Does have slightly elevated BNP but chest x-ray showing no acute process. On reevaluation patient remains in no acute distress and discussed his reassuring workup with him and his mother at bedside. Strongly recommended close follow-up with PCP to which they are agreeable and discharged in stable condition.
[2023-06-11] MEDS: ASPIRIN 81MG CHEWABLE TABLET 324 MG PO (20:02)
[2023-06-11 20:52] LABS: Basophils % 0.2 % (0.1-2.0); Eosinophils # 0.1 K/mm3 (0.0-0.4); Eosinophils % 1.3 % (0.1-12.0); Hemoglobin 14.3 g/dL (14.1-18.0); Lymphocytes # 1.7 K/mm3 (0.7-4.5); Lymphocytes % 18.5 % (10-50); Mean Corpuscular HGB Conc 32.5 g/dL (31.8-35.4); Mean Corpuscular Hemoglobin 31.8 pg (27.0-31.2); Mean Corpuscular Volume 97.8 fl (80-94); Mean Platelet Volume 8.1 fl (7.4-10.4); Monocytes # 0.7 K/mm3 (0.1-1.0); Neutrophils # 6.7 K/mm3 (1.8-7.8); Neutrophils % 72.8 % (37.0-80.0); Platelet Count 286 K/mm3 (142-424); Red Cell Distribution Width 13.6 % (11.5-17.5); White Blood Count 9.3 K/mm3 (4.8-10.8)
[2023-06-11 20:56] LABS: Chloride 108 mmol/L (98-107); Potassium 3.8 mmoL/L (3.5-5.1); Sodium 138 mmol/L (136-145)
[2023-06-11 20:59] LABS: Anion Gap 9.8 mEq/L (5-15); Blood Urea Nitrogen 15 mg/dl (9-20); Carbon Dioxide 24 mmol/L (22.0-30.0); Creatinine Clearance Estimated 109 mL/min (50-200); Estimated Glomerular Filt Rate 100 ml/min (>60); GFR (African American) 121 ML/MIN (>60); Glucose 99 mg/dl (74-100)
[2023-06-11 21:01] VITALS: BP 129/79; PULSE 83; RESP 16; O2SAT 94
[2023-06-11 21:12] LABS: Troponin I < 0.01 ng/ml (0.00-0.034)
[2023-06-11 22:02] VITALS: BP 116/68; PULSE 81; RESP 16; O2SAT 96
[2023-06-11 23:07] VITALS: BP 152/71; PULSE 73; RESP 16; TEMP 36.7; O2SAT 98
== END 2023-06-11 23:10 | disposition home or self-care (01) ==
PROVIDERS: Emergency Provider Emergency Medicine
DX: R07.9 Chest pain, unspecified (principal); R06.02 Shortness of breath; K21.9 Gastro-esophageal reflux disease without esophagitis
CPT/HCPCS: 71045; 80048; 84484; 85025; 93005; 99285

== ENCOUNTER → 2023-07-15 08:14 | Day surgery (SDC) | payer OTHER, SELFPAY ==
[2023-07-14 13:33] VITALS: BMI 32.5
[2023-07-15] MEDS: LACTATED RINGERS 1000ML 1,000 ML 25 ML IV (08:30)
[2023-07-15 08:32] VITALS: BP 133/71; PULSE 74; RESP 18; TEMP 36.5; O2SAT 98
--- NOTE | 2023-07-15 08:54 | P.PNANES_ITS ---
[facility] Disclaimer: The information contained in this section may have been updated after the patient was seen, as this information can be updated by other users. Medical History Anxiety and depression Edema Enlarged prostate History of back pain Testicle cancer Surgical History History of brain shunt History of colonoscopy Hx of appendectomy Family History Other Cancer Heart attack Kidney disease Social History Smoking Status: Never smoker second hand exposure: No alcohol intake: never substance use type: denies use current occupational status: disabled Travel in the last 8 weeks: None household members: family housing: house current occupational exposures/hazards: No caffeine: Yes [facility] Anesthesia Checklist Patient Identification Patient Identification: Arm Band, Family and Verbal (Name & ) Structural Data Admitted From: Home Planned Operative Procedure/s: EGD Consent for Planned Operative Procedure(s) Verified: Yes Verified Documents: Surgical Consent and History and Physical NPO Status Verified Time NPO: 21:30 Chart Verification Results Verified: CBC, BMP, ECG and Chest Xray Additional verifications Patient : No Anesthesia Reactions: No Hx Blood Transfusions: No Blood Transfusion Reaction: No Cardiovascular Assessment Heart Sounds: S1 & S2 Pulse Rhythm: Irregular Peripheral Edema: No Airway Assessment Mallampati Score:: Class II C-Spine Mobility Assessed: Yes (FROM) TMJ Mobility Assessed: Yes Dentition: Good Dentition (Nothing loose per pt.) Neurological Assessment Level of Consciousness: Awake, Alert, Appropriate and Follows Commands Hx Seizures: No Numbness or tingling in extremities: No Anesthesia Plan Anesthesia Risk discussed: Yes Anesthesia Plan: Verified ASA Class: III Anesthesia Type: MAC
--- NOTE | 2023-07-15 10:00 | SUR.PREOP ---
Procedure cancelled per Dr Mitchell. Not neede at this time.
== END ==
LOC: OUTP 08:15
PROVIDERS: PCP Nurse Practitioner Family; Visit Provider Internal Medicine
PROC: 0DJ08ZZ Inspection of Upper Intestinal Tract, Via Natural or Artificial Opening Endoscopic (ICD-10-PCS; CPT 43235; principal; 2023-07-15 09:30)
DX: Z53.9 Procedure and treatment not carried out, unspecified reason (principal)

== ENCOUNTER 2023-08-12 13:16 | Outpatient (CLI) | payer OTHER, SELFPAY ==
--- NOTE | 2023-08-12 13:19 | XR_ITS ---
FINAL REPORT CLINICAL HISTORY: Chronic foot Pain COMPARISON: None FINDINGS: RIGHT FOOT 3 views of the right foot were obtained. There is no acute fracture or dislocation. Visualized joint spaces are normally aligned. Soft tissues are unremarkable. There is a small plantar calcaneal spur. There is a small accessory navicular noted. IMPRESSION: No acute bony abnormality. Reviewed, Interpreted and Dictated by Mayur Orellana MD Transcribed by LUIS MANUEL Myers Authenticated and . [facility]
--- NOTE | 2023-08-12 13:19 | XR_ITS ---
FINAL REPORT CLINICAL HISTORY: Left foot Pain COMPARISON: None FINDINGS: LEFT FOOT Three views of the left foot demonstrate no acute fracture or dislocation. There is a sideplate and screws securing the distal fibula. There are 2 screws present in the medial malleolus. The hardware appears to be intact. There are multiple well-corticated ossific densities adjacent to the medial malleolus which likely represents sequela from old trauma. The visualized joint spaces are normally aligned. The soft tissues are unremarkable. IMPRESSION: Postoperative and chronic changes without acute bony abnormality. Reviewed, Interpreted and Dictated by Mayur Orellana MD Transcribed by Kiara Donaldson Authenticated and . [facility]
== END 2023-08-12 23:59 | disposition home or self-care (01) ==
LOC: RAD 13:17
PROVIDERS: PCP Nurse Practitioner Family; Visit Provider Podiatrist
DX: M79.671 Pain in right foot (principal); M79.672 Pain in left foot
CPT/HCPCS: 73630

== ENCOUNTER 2023-08-18 12:22 | Outpatient (CLI) | payer OTHER, SELFPAY ==
--- NOTE | 2023-08-18 12:22 | US_ITS ---
FINAL REPORT CLINICAL HISTORY: Decreased pedal pulses COMPARISON: None FINDINGS: LOWER EXTREMITY SEGMENTAL PRESSURE MEASUREMENTS FINDINGS: Pressure indices are as follows: RIGHT LOWER EXTREMITY: Thigh: 0.97 Calf: 0.88 Ankle, posterior tibial artery: 1.07 Ankle, dorsalis pedis: 0.86 Toe: 0.82 CONOR: 1.07 Comments: Normal LEFT LOWER EXTREMITY: Thigh: 0.93 Calf: 0.98 Ankle, posterior tibial artery: 0.95 Ankle, dorsalis pedis: 0.86 Toe: 0.82 CONOR: 0.95 Comments: Normal IMPRESSION: No evidence of significant obstructive peripheral vascular disease. Reviewed, Interpreted and Dictated by Oz Lujan MD Transcribed by Kiara Donaldson Authenticated and [facility]
== END 2023-08-18 23:59 | disposition home or self-care (01) ==
LOC: RT 12:22
PROVIDERS: PCP Nurse Practitioner Family; Visit Provider Nurse Practitioner
DX: R09.89 Other specified symptoms and signs involving the circulatory and respiratory systems (principal)
CPT/HCPCS: 93923

== ENCOUNTER 2024-04-19 12:56 | Outpatient (RCR) | payer OTHER, SELFPAY | END 2024-04-19 23:59 | disposition home or self-care (01) | LOC: PT 12:56 | PROVIDERS: Visit Provider Physical Medicine & Rehabilitation | DX: R53.1 Weakness (principal); G82.20 Paraplegia, unspecified | CPT/HCPCS: 97163 ==